=== PATIENT | female | born 1950 | race Caucasian/White ===

== ENCOUNTER 2016-05-05 09:48 | Emergency (ER) ==
--- NOTE | 2016-05-05 10:01 | PROVIDER DOCUMENTATION ---
HPI-Cardiopulmonary Arrest - General Source: EMS - History of Present Illness-C/P Arrest Reason for Code Blue?: full arrest Witnessed arrest?: No (found in bathroom by ) CPR initiated before doctor arrival?: Yes (EMS) Down-time before ACLS?: unknown (pt states pt was up around 0600am and he fell back asleep . Pt then found pt in bathroom on the floor unresponsive. EMS was in scene at 0910. CPR was initiated on arrival of EMS.) Initial Findings: unresponsive, asystole Treatment initiated prior to doctor arrival?: Initiated oxygen, Initiated CPR/ thumper, Initiated epinephrine #mg (4), Initiated sodium bicarb # amps - Pre-hospital Treatment EMS Initial Findings:: unresponsive, other (asystole) EMS Initial HR: 0 EMS Initial EKG Rhythm: ASYSTOLE Pre-hospital Treatment: Initiated oxygen, Initiated CPR, Initiated epinephrine - Pronouncement CPR discontinued. Patient pronounced at: 09:50 Family notified?: Yes home notified?: Yes <Lilliana Barney - Last Filed: 05/05/16 10:30> <Nakul Waller I - Last Filed: 05/05/16 10:40> - General Stated Complaint: full arrest Time Seen by Provider: 05/05/16 09:48 Allergies/Adverse Reactions: Allergies Allergy/AdvReac Type Severity Reaction Status Date / Time soybean AdvReac Mild RASH Verified 07/03/14 14:53 codeine AdvReac Unknown Verified 07/03/14 14:50 meperidine HCl * AdvReac HIVES Verified 07/03/14 14:52 [From Demerol] NSAIDS (Non-Steroidal AdvReac Unknown Verified 07/03/14 14:52 Anti-Inflamma Penicillins AdvReac RASH Verified 07/03/14 14:52 soy AdvReac RASH Verified 07/03/14 14:53 Home Medications: Home Medication List Medication Instructions Recorded Confirmed Last Taken Type Clonazepam [Klonopin] 0.3 mg PO DAILY 07/03/14 07/03/14 07/03/14 06:00 History - History of Present Illness-C/P Arrest Initial Comments: 65 y/o F presents to ED per EMS full arrest. EMS states pt stated he heard pt walking around 0600 this am. found pt this am laying in floor in the bathroom. On EMS arrival at 0910 CPR was started. EMS attempted to intubated and failed due to a piece of meat lodge. Piece of meat was removed by EMS. EMS states pt was in Asytole rhythm the whole time EMS was on scene and in route. EMS administrated medications on scene and in route. An IO was placed. EMS states pt states pt has been feeling bad the past couple of days but would not go to doctor. Ayala was in place on arrival to ED. 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 ) - PRIOR SURGERIES/PROCEDURES Surgical/Procedure History: reports: hysterectomy, joint replacement (back sx x 5 times ), other (stomach ) - IMMUNIZATION STATUS Childhood Immunizations: See Nurse Assessment Flu Vaccine: See Nurse Assessment - SOCIAL HISTORY Smoking: quit greater than 1 year Substance Use: denies <Lilliana Barney - Last Filed: 05/05/16 10:30> Physical Exam-General - PHYSICAL EXAM-ADULT Exam Limited by: FULL ARREST Initial Vital Signs Reviewed: Yes - CONSTITUTIONAL General Appearance: other (PT IS FULL ARREST/ CPR IN PROGRESS BY AYALA ARRIVAL TO ED) - EYES Eyes: other (fixed/ dialated) - CARDIOVASCULAR Cardiovascular: other (ASYSTOLE RHYTHM) <Lilliana Barney - Last Filed: 05/05/16 10:30> Progress <Lilliana Barney - Last Filed: 05/05/16 10:30> <Nakul Waller I - Last Filed: 05/05/16 10:40> - PLAN OF CARE/RESULTS Progress/Plan/Lab Results: PT WAS BROUGHT IN BY EMS([facility]). FULL ARREST WITH CPR IN PROGRESS PER AYALA. PT WAS NOT INTUBATED DUE TO FAILED ATTEMPT FROM EMS. EMS PULLED A PIECE OF MEAT FROM PT AIRWAY. PT WAS INTUBATED IN ED PER RESPIRATORY THERAPIST @ 0946 WITH A 7.5 TUBE. TUBE WAS IN GOOD POSITION CONFIRMED BY END-TIDAL C02 . 0940: PT ARRIVED BY EMS, WHEN MOVED TO ED BED PULSE CHECK WAS DONE WITH NO PULSE. AYALA WAS REMOVED FOR MANUAL CPR TO BE STARTED. 0946: PT WAS INTUBATED BY RESPIRATORY THERAPISTS. 0947: EPI WAS GIVEN IN ED 1948: ATROPINE WAS GIVEN BY NURSE 0949: PULSE CHECK WITH NO PULSE 0949: AMP D50 WAS GIVEN TO PT DUE TO FSBS PER EMS BEING 20 0950: PULSE CHECK WITH NO PULSE 0950: TIME OF HAS BEEN TALKED TO PER . STATES PT HAD A PLATE OF FOOD WITH RIBS ON BATHROOM FLOOR WITH HER. PT ATTEMPTED TO OPEN DOOR BUT UNABLE DUE TO PT LAYING IN FRONT OF DOOR. 1020: PT IS AT BED SIDE OF PT. (Lilliana Barney) Spoke to concerning the events leading up to Mrs. Matta's . He says he thinks she may have choked on some food. (Nakul Waller I) Procedures - INTUBATION Time of Intubation: 09:46 Intubation Method: orotracheal Equipment: ETT Tube Size (cm): 7.5 Pretreated with 100% Oxygen?: Yes Breath Sounds after Intubation: equal ETT Primary Tube Confirmation: Capnometry CO2 Change, Direct Visualization, Chest Rise and Fall Intubation Complications: no complications Vent Settings: See Respiratory Therapy Notes Procedure Comment: pt was intubated by Respiratory Therapist/ see nurse notes/ respiratory note <Lilliana Barney - Last Filed: 05/05/16 10:30> Departure - Departure Time of Disposition Order: 09:50 Certified Medical Emergency: Emergent <Lilliana Barney - Last Filed: 05/05/16 10:30> - Departure Time of Disposition Order: 10:39 Certified Medical Emergency: Emergent <Nakul Waller I - Last Filed: 05/05/16 10:40> - Departure DIAGNOSIS: Cardiopulmonary arrest, Emergency department triage assessment of Disposition: 20 Condition: Referrals: None,PCP [Primary Care Provider] - Attestation - Scribe Verification/Attestation Scribe:: Lilliana Barney Acting as Scribe for:: Nakul Waller Scribe documention review:: This chart was documented by a scribe and accurately reflects the service the provider performed and the decisions made by the provider. <Lilliana Barney - Last Filed: 05/05/16 10:30> - Physician/ CHALINO Attestation Patient care was provided by Advanced Practice Provider:: Yes Advanced Practice Provider documentation review:: The Mid-level provider documentation, treatment plan and medical decision making was reviewed by the physician who agrees with all treatment and medical decision making by the MLP. The physician spent face to face time with patient:: Yes Advanced Practice Provider documentation review:: The physician spent face to face time with this patient and agrees with all MLP documentation, treatment, and medical decision making by the MLP. See provider notes for further information. <Nakul Waller I - Last Filed: 05/05/16 10:40> Physician Attestation - Physician Attestation I, the provider, attest to the following statement:: Nakul Waller Physician documentation Attestation:: This documentation recorded by the scribe accurately reflects the service I personally performed and the decisions made by me. <Lilliana Barney - Last Filed: 05/05/16 10:30> - Physician Attestation I, the provider, attest to the following statement:: Nakul Waller Physician documentation Attestation:: This documentation recorded by the scribe accurately reflects the service I personally performed and the decisions made by me. <Nakul Waller I - Last Filed: 05/05/16 10:40>
[2016-05-05] MEDS ORDERED: EPINEPHRINE SYRINGE ONE (14:22)
[2016-05-05] MEDS ORDERED: SODIUM BICARBONATE 8.4% ONE (14:22)
[2016-05-05] MEDS ORDERED: ATROPINE SYRINGE ONE (14:22)
[2016-05-05] MEDS ORDERED: D50W SYRINGE ONE (14:22)
== END 2016-05-05 18:02 | disposition expired ==
LOC: EDBD → ED 09:48
DX: I46.9 Cardiac arrest, cause unspecified (principal); Z85.819 Personal history of malignant neoplasm of unspecified site of lip, oral cavity, and pharynx; Z87.891 Personal history of nicotine dependence; Z79.899 Other long term (current) drug therapy
CPT/HCPCS: 31500; 99285; J0171; J0461